=== PATIENT | female | born 1945 | race Caucasian/White ===

== ENCOUNTER 2017-10-26 09:54 | Emergency (ER) | payer MEDICARE, BC ==
--- NOTE | 2017-10-26 10:08 | UC ---
Dizzy HPI HPI Summary: This is Lluvia brian, documenting for attending Estee Norwood MD. This patient is a 72 year old F presenting to [facility] accompanied by her with a chief complaint of dizziness beginning four days ago after eating in the morning. Reports nausea, vomiting, and diarrhea on 10/23/17, with just nausea and dizziness since then. Dizziness improved yesterday but returned this morning. Dizziness described as room spinning. Dizziness improves slightly while lying down. No change with closing eyes. Reports fever on 10/23/17, that is currently resolved. Denies pain, chest pain, SOB, bloody or black stools, ear pain, sinus pain, post nasal drip. Denies recent trauma, no falls. No anticoagulation. No ho similar. No new or different medications. Denies hx of PR or CVA. Pt's medication reviewed this visit. - History Of Current Complaint Stated Complaint: DIZZINESS Hx Obtained From: Patient Onset/Duration: Lasting Days, Worse Since - this morning Timing: Constant Severity Initially: Mild Severity Currently: Moderate Character: Room Spinning Alleviating Factor(s): Lying Down, Closing Eyes Associated Signs And Symptoms: Positive: Nausea, Vomiting. Negative: Chest Pain , SOB - Allergies/Home Medications Allergies/Adverse Reactions: Allergies Allergy/AdvReac Type Severity Reaction Status Date / Time Unable to Assess Allergy Verified 10/26/17 10:16 Home Medications: Home Medications Levothyroxine TAB* [Synthroid TAB*] 88 mcg PO 0800 10/26/17 [History Confirmed 10/26/17] PMH/Surg Hx/FS Hx/Imm Hx Previously Healthy: Yes Endocrine History: Hypothyroidism - Surgical History Surgical History: None - Family History Known Family History: Positive: Cardiac Disease - father of [place] - Social History Lives: With Family Alcohol Use: None Substance Use Type: None Smoking Status (MU): Never Smoked Tobacco Review of Systems Constitutional: Fever - tactile, resolved ENT: Negative Respiratory: Negative Cardiovascular: Negative Gastrointestinal: Vomiting, Nausea Neurological: Other - dizziness All Other Systems Reviewed And Are Negative: Yes Physical Exam - Summary Physical Exam Summary: Vital Signs Reviewed: Yes A+Ox3, no distress Eyes: Conjunctiva Clear, LARRY. EOM intact and full + right horizontal nystagmus + vertical nystagmus. no symptoms. no injection ENT: Hearing grossly normal TM x 2 clear, mmoist, uvula midline, no exudate, no erythema mmpasty, lips dry Neck: Positive: Supple Respiratory: Positive: No respiratory distress, No accessory muscle use + CTA throughout no w/r Cardiovascular: RRR - bradycardic nl s1, s2 no m/r CBT <2 sec no bruit, no temporal artery pain abd soft + BS nt/nd no guarding, no distension Musculoskeletal Exam: PHIPPS x 4 without difficulty Strength Intact, ROM Intact Neurological: Positive: Alert, nystagmus right horizontal and vertical, face symmetric, tongue midline Psychological: Positive: Normal Response To Family Skin: Positive: no rash, no ecchymosis mild pallor Triage Information Reviewed: Yes Diagnostics - EKG EKG Comments: Performed at 09:59. No acute ST-T wave changes. Cardiac Rate: Bradycardia - 57 BPM Cardiac Rhythm: Sinus: Normal Dizzy Course/Dx - Course Course Of Treatment: Patient presents with 4 days progressive dizziness and nausea. Patient did have one day of nausea vomiting diarrhea that has since resolved. Patient states dizziness seems to be getting worse. Patient's states is slightly improved when she lies supine. Patient without any history of similar. On exam patient has both lateral as well as vertical nystagmus. Vital signs stable. EKG reviewed and not concerning. Patient slightly bradycardic but states this is baseline. Fingerstick glucose was 97. CT service is not available at urgent care today and there is some antral process process given the vertical nystagmus. Most likely, this is peripheral in nature but cannot exclude central causes. After much discussion with patient and patient has agreed to the emergency department. Patient's symptoms are exacerbated by movement and she feels nausea. Will transfer by EMS. We'll place IV fluids, give Zofran as well as meclizine. Spoke to CHARLIE Alvarado in ED - aware of patient. Patient and spouse comfortable in agreement with plan. - Differential Dx/Diagnosis Provider Diagnoses: dizziness. nystagmus Discharge - Sign-Out/Discharge Documenting (check all that apply): Patient Departure - Discharge Plan Condition: Stable Disposition: TRANS HIGHER LVL OF CARE FAC Referrals: Genny Medrano MD [Primary Care Provider] - - Billing Disposition and Condition Condition: STABLE Disposition: Trans Higher Lvl of Care Fac
[2017-10-26] MEDS ORDERED: Ondansetron INJ* 2 MG/ML VIAL IV ONE (10:45)
[2017-10-26] MEDS ORDERED: NS 0.9% 1000 ML* 1,000 ML IV ONE (10:45)
[2017-10-26] MEDS ORDERED: Meclizine TAB* 12.5 MG PO ONE (10:46)
[2017-10-26 11:05] VITALS: BP 125/54
== END 2017-10-26 11:12 | disposition short-term general hospital (02) ==
LOC: UCEAST 09:54
DX: R42 Dizziness and giddiness (principal); M62.81 Muscle weakness (generalized); E03.9 Hypothyroidism, unspecified
CPT/HCPCS: 93005; 96361; 96374; 99203; A9270-GY; G0463; J2405

== ENCOUNTER 2017-10-26 11:33 | Emergency (ER) | payer MEDICARE, BC ==
[2017-10-26] MEDS ORDERED: Meclizine TAB* 12.5 MG PO ONE (11:47)
[2017-10-26] MEDS ORDERED: NS 0.9% 1000 ML* 1,000 ML IV ONE (11:47)
[2017-10-26] MEDS ORDERED: diPHENhydraMINE IV* 50 MG/ML 1 ml VIAL (BENADRYL) IV ONE (11:47)
--- NOTE | 2017-10-26 12:00 | ED ---
Dizziness - HPI Summary HPI Summary: [facility] Johan Pierson MD. Pt is a 72 y/o F c/o dizziness onset ~4 days ago. She describes the dizziness as the room is spinning and is worsened by movement of her head. Assoc. Sx: N/V/ D, Dizziness. Denies: unsteady gait, inability to walk, trauma, having had these Sx previously. She reports feeling better yesterday but Sx worsened today causing her visit to [facility]. She was then referred to the ED with a positive halpike exam, although she tested negative in her physical exam. PMHx: thyroid. I, Dr. Pierson, personally performed the services described in this documentation as scribed in my presence and it is both accurate and complete. - History Of Current Complaint Chief Complaint: EDDizziness Stated Complaint: VOMITTIN,NAUSEA Time Seen by Provider: 10/26/17 11:38 Hx Obtained From: Patient Onset/Duration: Gradually - 4 days ago Timing: Constant Severity Initially: Mild Severity Currently: Moderate Character: Room Spinning Associated Signs And Symptoms: Positive: Nausea, Vomiting, Diarrhea. Negative: Unsteady Gait, Inability to Walk - Allergies/Home Medications Allergies/Adverse Reactions: Allergies Allergy/AdvReac Type Severity Reaction Status Date / Time No Known Allergies Allergy Verified 10/26/17 11:42 PMH/Surg Hx/FS Hx/Imm Hx Endocrine/Hematology History: Reports: Hx Thyroid Disease - hypo - Surgical History Surgery Procedure, Year, and Place: R breast biopsy, D&C Infectious Disease History: No Infectious Disease History: Reports: Hx Shingles Denies: Traveled Outside the [place] in Last 30 Days - Family History Known Family History: Positive: Cardiac Disease - father of ID - Social History Occupation: Retired Lives: With Family Alcohol Use: None Substance Use Type: Reports: None Smoking Status (MU): Never Smoked Tobacco Review of Systems Positive: Other - POS: dizziness NEG: unsteady gait, inability to walk Positive: Vomiting, Diarrhea, Nausea All Other Systems Reviewed And Are Negative: Yes Physical Exam - Summary Physical Exam Summary: Appearance: Well appearing, no pain distress Skin: warm, dry, reflects adequate perfusion Head/face: normal Eyes: EOMI, LARRY ENT: normal Neck: supple, non-tender Respiratory: CTA, breath sounds present Cardiovascular: RRR, pulses symmetrical Abdomen: non-tender, soft Bowel Sounds: present Musculoskeletal: normal, strength/ROM intact Neuro: normal, sensory motor intact, A&Ox3, (-) Halpike exam, cranial nerves intact, (-) nystagmus: was (+) at [facility]. Triage Information Reviewed: Yes Vital Signs On Initial Exam: Initial Vitals Pulse Pulse Ox 58 94 10/26/17 11:38 10/26/17 11:38 Vital Signs Reviewed: Yes Diagnostics - Vital Signs Vital Signs Temp Pulse Resp BP Pulse Ox 10/26/17 11:39 97.8 F 57 16 138/76 94 10/26/17 11:38 58 94 - Laboratory Result Diagrams: 10/26/17 11:58 10/26/17 11:58 Lab Statement: Any lab studies that have been ordered have been reviewed, and results considered in the medical decision making process. - CT Brain CT CT Interpretation: No Acute Changes - IMPRESSION: no acute intracranial pathology CT Interpretation Completed By: Radiologist - Report has been reviewed by provider and radiologist. Dizzy Course/Dx - Course Course Of Treatment: Patient presents with minimal symptoms after be given meclizine by urgent care. She had an EKG there that was normal. She was referred here for further testing including CT scan. The CT scan was negative as were her laboratories. She was treated here with relief with IV fluids, Benadryl. She was prescribed meclizine and was taught Sadia maneuvers. She'll follow up closely with her primary care physician for further. - Diagnoses Differential Diagnosis/HQI/PQRI: Benign Paroxysmal Positional Vertigo, Hypovolemia, Labyrinthitis, Meniere's Disease, Medication Reaction, Metabolic Abnormality Provider Diagnoses: Positional vertigo of right ear Discharge - Sign-Out/Discharge Documenting (check all that apply): Patient Departure - Discharge Plan Condition: Improved Disposition: HOME Prescriptions: Meclizine HCl [Dramamine Less Drowsy] 25 mg PO TID PRN #30 tablet PRN Reason: vertigo, nausea Patient Education Materials: Vertigo (ED) Referrals: Genny Medrano MD [Primary Care Provider] - Additional Instructions: Do not drive until well. Stay well-hydrated. Use Sadia maneuvers as described. You may watching a video online to demonstrate this. Return if worse, headaches, numbness/weakness, new symptoms or other concerns as discussed. - Billing Disposition and Condition Condition: IMPROVED Disposition: Home
[2017-10-26 12:08] LABS: ABS Basophils 0 10^3/ul (0-0.2); ABS Eosinophils 0 10^3/ul (0-0.6); ABS Lymphocytes 0.6 10^3/ul (1.0-4.8); ABS Monocytes 0.3 10^3/ul (0-0.8); ABS Neutrophils 5.1 10^3/ul (1.5-7.7); ABS Nucleated RBC 0 10^3/ul; Eosinophil % 0.3 % (0-6); Hematocrit 45 % (35-47); Hemoglobin 15.2 g/dl (12.0-16.0); Lymphocyte % 10.2 % (25-47); Mean Corpuscular HGB Conc 34 g/dl (31-36); Mean Corpuscular Hemoglobin 29 pg (27-31); Mean Corpuscular Volume 84 fL (80-97); Mean Platelet Volume 7.3 um3 (7.4-10.4); Nucleated Red Blood Cells % 0.1; Platelet Count 295 10^3/ul (150-450); Red Blood Count 5.31 10^6/ul (4.00-5.40); Red Cell Distribution Width 13 % (10.5-15); White Blood Count 6.1 10^3/ul (3.5-10.8)
--- NOTE | 2017-10-26 12:22 | RAD ---
HISTORY: vertigo COMPARISONS: None TECHNIQUE: Multiple contiguous axial CT scans were obtained of the head without intravenous contrast. FINDINGS: HEMORRHAGE/INFARCT: There is no hemorrhage or acute infarct. MASSES/SHIFT: There is no mass or shift. EXTRA-AXIAL SPACES: There are no extra-axial fluid collections. SULCI AND VENTRICLES: The sulci and ventricles are normal in size and position for the patient's stated age. CEREBRUM: There are no focal parenchymal abnormalities. BRAINSTEM: There are no focal parenchymal abnormalities. CEREBELLUM: There are no focal parenchymal abnormalities. VESSELS: The vessels are grossly normal. PARANASAL SINUSES: The paranasal sinuses are clear. ORBITS: The orbits are unremarkable. BONES AND SOFT TISSUE: No bone or soft tissue abnormalities are noted. OTHER: None IMPRESSION: NO ACUTE INTRACRANIAL PATHOLOGY.
[2017-10-26 12:32] LABS: EGFR Non-African American 73.7 (>60)
[2017-10-26 12:42] LABS: Urine Appearance Clear; Urine Blood 1+ (Negative); Urine Color Yellow; Urine Ketones 1+ (Negative); Urine Protein Negative (Negative); Urine Red Blood Cell 1+(3-5/hpf) (Absent); Urine Specific Gravity 1.012 (1.010-1.030); Urine Urobilinogen Negative (Negative); Urine White Blood Cell 1+(6-10/hpf) (Absent)
[2017-10-26 13:32] VITALS: BP 129/58
== END 2017-10-26 13:37 | disposition home or self-care (01) ==
LOC: ED 11:33
DX: H81.12 Benign paroxysmal vertigo, left ear (principal); E03.9 Hypothyroidism, unspecified; M62.81 Muscle weakness (generalized)
CPT/HCPCS: 36415; 70450; 80048; 81003; 81015; 85025; 85610; 87077; 87086; 96374; 99283; J1200

== ENCOUNTER 2018-01-19 10:29 | Emergency (ER) | payer MEDICARE, BC ==
[2018-01-19 10:38] VITALS: BP 134/65
--- NOTE | 2018-01-19 11:50 | UC ---
General HPI - HPI Summary HPI Summary: 73 yo pt tick removed from right flank this am by , he hunts all the time but she stays at home. Denies previous presence of rash in the past. Tick was brought in a plastic bag alive, no engorgement of tick noted. - History of Current Complaint Chief Complaint: [place] Stated Complaint: TICK BITE Time Seen by Provider: 01/19/18 11:38 Hx Obtained From: Patient Onset/Duration: Sudden Onset, Lasting Hours Pain Intensity: 0 - Allergy/Home Medications Allergies/Adverse Reactions: Allergies Allergy/AdvReac Type Severity Reaction Status Date / Time No Known Allergies Allergy Verified 01/19/18 10:38 PMH/Surg Hx/FS Hx/Imm Hx Endocrine History: Hypothyroidism - Surgical History Surgical History: Yes Surgery Procedure, Year, and Place: R breast biopsy, D&C - Family History Known Family History: Positive: Cardiac Disease - father of [place] - Social History Alcohol Use: None Substance Use Type: None Smoking Status (MU): Never Smoked Tobacco Review of Systems All Other Systems Reviewed And Are Negative: Yes Skin: Positive: Other - tick Physical Exam Triage Information Reviewed: Yes Appearance: Well-Appearing Vital Signs: Initial Vital Signs Temp 97 F 01/19/18 10:36 Pulse 80 01/19/18 10:36 Resp 17 01/19/18 10:36 BP 134/65 01/19/18 10:36 Pulse Ox 100 01/19/18 10:36 Eyes: Positive: Conjunctiva Clear ENT: Positive: Hearing grossly normal Neck: Positive: Supple, Nontender Respiratory: Positive: Chest non-tender Cardiovascular: Positive: Pulses Normal, Brisk Capillary Refill Abdomen Description: Positive: Nontender Musculoskeletal: Positive: Strength Intact, ROM Intact Neurological: Positive: Alert Course/Dx - Course Course Of Treatment: patient had deer tick removed from back by this morning. Denies previous presence of rash in the past. Tick was brought in a plastic bag alive, no engorgement of tick noted. 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 - Differential Dx - Multi-Symptom Provider Diagnoses: tick bite Discharge - Sign-Out/Discharge Documenting (check all that apply): Patient Departure All imaging exams completed and their final reports reviewed: No Studies - Discharge Plan Condition: Stable Disposition: HOME Patient Education Materials: Tick Bite (ED), Lyme Disease (ED), Doxycycline ( By mouth) Referrals: Genny Medrano MD [Primary Care Provider] - - Billing Disposition and Condition Condition: STABLE Disposition: Home
== END 2018-01-19 12:03 | disposition home or self-care (01) ==
LOC: UCEAST 10:29
DX: S30.861A Insect bite (nonvenomous) of abdominal wall, initial encounter (principal); W57.XXXA Bitten or stung by nonvenomous insect and other nonvenomous arthropods, initial encounter; Y92.9 Unspecified place or not applicable
CPT/HCPCS: 99212; G0463